=== PATIENT | male | born 1990 | race Caucasian/White ===

== ENCOUNTER 2021-04-21 09:16 | Emergency (ER) | payer BC ==
[~2021-04-21] VITALS: Ht 180.3 cm; Wt 100.0 kg
[2021-04-21 09:24] VITALS: BP 147/85
== END 2021-04-21 10:51 | disposition home or self-care (01) ==
LOC: ER 09:16
DX: Z20.822 Contact with and (suspected) exposure to COVID-19 (principal)
CPT/HCPCS: 87635; 99283; C9803